=== PATIENT | male | born 2000 | race Caucasian/White ===

== ENCOUNTER 2024-06-13 18:37 | Emergency (ER) | payer OTHER ==
[~2024-06-13] VITALS: Ht 170.2 cm; Wt 69.3 kg
[2024-06-13 18:50] VITALS: TEMP 99.7
[2024-06-13 22:47] VITALS: BP 97/47; O2SAT 97
== END 2024-06-13 22:56 | disposition home or self-care (01) ==
LOC: M ED 18:37
DX: R59.0 Localized enlarged lymph nodes (principal)